=== PATIENT | female | born 1950 | race Asian ===

== ENCOUNTER 2022-06-17 11:37 | Emergency (ER) | payer OTHER ==
[~2022-06-17] VITALS: Ht 152.4 cm; Wt 80.3 kg
[2022-06-17 11:41] VITALS: BP 150/90
--- NOTE | 2022-06-17 11:41 | NUR ---
MAKENZIE ALS TO ER BED 4
--- NOTE | 2022-06-17 11:45 | NUR ---
72/F [facility] [place] for ALOC and HTN x 20 minutes BP 217/89. Patient ambulatory, A&Ox4; dialysis M/W/F completed ~2 hrs of dialysis treatment. Per EMS, patient was altered on scene with GCS 12 E3 V3 M6. Upon assessment, patient A&Ox3 to name/, time, place. Patient denies medical complaint at this time; denies SOB, chest pain, headache, dizziness, fatigue, blurry vision, extremity weakness. Tunneled cath right upper chest. 20G to L AC by EMS. SpO2 99% on room air. 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 Bed locked in lowest position, side rails x 2 for pt safety. PMH: ESRD stage 5 Meds: carvedilol, amlodipine, glipzide, benazepril NKDA
--- NOTE | 2022-06-17 12:10 | NUR ---
Patient to CT by mihai
--- NOTE | 2022-06-17 12:27 | NUR ---
Dr. Villa evaluating patient at bedside
--- NOTE | 2022-06-17 12:28 | NUR ---
Patient returned from CT via gurney and placed back onto teletypesetter monitor.
[2022-06-17] MEDS ORDERED: amLODIPine 5 MG TAB PO ONE (12:40)
--- NOTE | 2022-06-17 12:45 | NUR ---
Lab at bedside
--- NOTE | 2022-06-17 12:59 | NUR ---
Patient unable to void
--- NOTE | 2022-06-17 13:00 | NUR ---
Dr. Villa made aware of patient unable to void.
[2022-06-17 13:29] LABS: BASOPHILS # (AUTO) 0.1 K/uL (0.00-0.22); BASOPHILS % (AUTO) 0.9 % (0.0-2.0); EOSINOPHILS # (AUTO) 0.2 K/uL (0-0.4); EOSINOPHILS % (AUTO) 4.2 % (0.0-4.0); HEMATOCRIT 32.6 % (36-48); HEMOGLOBIN 10.3 g/dL (12.0-16.0); LYMPHOCYTES # (AUTO) 1.1 K/uL (2.5-16.5); LYMPHOCYTES % (AUTO) 18.6 % (20.5-51.1); MEAN CORPUSCULAR HEMOGLOBIN 26 pg (27-31); MEAN CORPUSCULAR HGB CONC 32 g/dL (33-37); MEAN CORPUSCULAR VOLUME 80.4 fL (80-94); MONOCYTES # (AUTO) 0.4 K/uL (0.8-1.0); MONOCYTES % (AUTO) 7.6 % (1.7-9.3); NEUTROPHILS # (AUTO) 4.1 K/uL (1.8-7.7); NEUTROPHILS % (AUTO) 68.7 % (42.2-75.2); PLATELET COUNT (AUTO) 135 K/uL (140-450); RED BLOOD CELL COUNT(AUTO) 4.06 MIL/uL (4.20-5.40); RED CELL DISTRIBUTION WIDTH 17.3 % (11.6-13.7); WHITE BLOOD COUNT (AUTO) 5.9 K/uL (4.8-10.8)
[2022-06-17 13:55] LABS: ALBUMIN 3.5 g/dL (3.4-5.0); ANION GAP 11.8 (8-16); CARBON DIOXIDE 30.9 mmol/L (21-32); CREATININE 2.9 mg/dL (0.6-1.3); POTASSIUM 3.7 mmol/L (3.5-5.1); TOTAL BILIRUBIN 0.7 mg/dL (0.0-1.0)
[2022-06-17 14:28] LABS: THYROID STIMULATING HORMONE 0.18 uIU/mL (0.34-3.74)
--- NOTE | 2022-06-17 14:30 | NUR ---
Patient resting with both eyes closed in semi-fowlers position. 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 Bed locked in lowest position, side rails x 1. Respirations even/unlabored.
--- NOTE | 2022-06-17 14:32 | NUR ---
BP 203/83; Dr. Unger notified.
[2022-06-17] MEDS ORDERED: BENAZEPRIL 20 MG TAB PO SCH (14:35)
[2022-06-17] MEDS ORDERED: carvediloL 6.25 MG TAB PO ONE (14:35)
[2022-06-17] MEDS ORDERED: CRUSHER, PILL MC ONE (14:43)
--- NOTE | 2022-06-17 15:12 | NUR ---
Patient resting with both eyes closed in semi-fowlers position. quality assurance monitor body remains in place. Respirations even/unlabored; SpO2 99% on room air. Bed locked in lowest position, side rails x 1.
--- NOTE | 2022-06-17 16:15 | NUR ---
BP 186/83; Dr. Unger notified.
[2022-06-17 16:17] VITALS: BP 186/83
--- NOTE | 2022-06-17 16:18 | NUR ---
EMT bedside for EKG
--- NOTE | 2022-06-17 16:24 | NUR ---
Patient A&Ox4 at this time speaking with family on phone.
--- NOTE | 2022-06-17 16:27 | NUR ---
[facility] notified for patient's pending discharge. States ETA 10 minutes.
--- NOTE | 2022-06-17 16:53 | NUR ---
Patient discharged with v/s stable. Written and verbal after care instructions given and explained. Patient verbalized understanding. Ambulatory with steady gait. All questions addressed prior to discharge. Advised to follow up with PMD. Addendum: 06/17/22 at 1655 by MED Patient discharged with v/s stable. Written and verbal after care instructions given and explained for Hemodialysis, Care After. Patient verbalized understanding. Ambulatory with steady gait. All questions addressed prior to discharge. Advised to follow up with PMD.
== END 2022-06-17 16:53 | disposition home or self-care (01) ==
LOC: MED 11:37
DX: E87.8 Other disorders of electrolyte and fluid balance, not elsewhere classified (principal); Z20.822 Contact with and (suspected) exposure to COVID-19; N18.5 Chronic kidney disease, stage 5; I10 Essential (primary) hypertension; Z99.2 Dependence on renal dialysis
CPT/HCPCS: 36415; 70450; 71045; 80053; 83605; 83880; 84443; 84484; 85025; 87040; 87426; 93005; 99285; G0482; Q0092

== ENCOUNTER 2024-02-02 12:16 | Inpatient (IN) | payer OTHER, MEDICAID ==
[~2024-02-02] VITALS: Ht 177.8 cm; Wt 49.9 kg
[2024-02-02 12:23] VITALS: BP 179/99; PULSE 77; RESP 20; TEMP 98.4; O2SAT 95
[2024-02-02 14:00] VITALS: O2SAT 95
[2024-02-02 14:17] LABS: FLU A ANTIGEN negative (NEGATIVE); FLU B ANTIGEN negative (NEGATIVE)
[2024-02-02 14:24] LABS: MEAN CORPUSCULAR VOLUME 90.1 fL (80-94); RED BLOOD CELL COUNT(AUTO) 3.66 MIL/uL (4.20-5.40)
[2024-02-02 14:26] LABS: BASOPHILS # (AUTO) 0.1 K/uL (0.00-0.22); BASOPHILS % (AUTO) 1.1 % (0.0-2.0); EOSINOPHILS % (AUTO) 9.8 % (0.0-4.0); LYMPHOCYTES # (AUTO) 1.9 K/uL (2.5-16.5); LYMPHOCYTES % (AUTO) 17.9 % (20.5-51.1); MEAN CORPUSCULAR HEMOGLOBIN 30 pg (27-31); MEAN CORPUSCULAR HGB CONC 33 g/dL (33-37); MONOCYTES # (AUTO) 0.7 K/uL (0.8-1.0); NEUTROPHILS # (AUTO) 6.8 K/uL (1.8-7.7); NEUTROPHILS % (AUTO) 64.2 % (42.2-75.2); PLATELET COUNT (AUTO) 218 K/uL (140-450); RED CELL DISTRIBUTION WIDTH 14.3 % (11.6-13.7); WHITE BLOOD COUNT (AUTO) 10.6 K/uL (4.8-10.8)
[2024-02-02 14:44] LABS: ALANINE AMINOTRANSFERASE 11 U/L (12-78); ALBUMIN 3.6 g/dL (3.4-5.0); ALKALINE PHOSPHATASE 132 U/L (50-136); ASPARTATE AMINOTRANSFERASE 16 U/L (15-37); BILIRUBIN,DIRECT 0.1 mg/dL (0.0-0.3); TOTAL BILIRUBIN 0.6 mg/dL (0.0-1.0)
[2024-02-02 14:47] LABS: LACTIC ACID 1.8 mmol/L (0.4-2.0)
[2024-02-02 14:52] LABS: ANION GAP 12.2 (8-16); CALCIUM 10.1 mg/dL (8.5-10.1); CARBON DIOXIDE 33.4 mmol/L (21-32); CHLORIDE 97 mmol/L (98-107); CREATININE 3.1 mg/dL (0.6-1.3); GLUCOSE 133 mg/dL (74-106); POTASSIUM 3.6 mmol/L (3.5-5.1); SODIUM SERUM 139 mmol/L (136-145); UREA NITROGEN, BLOOD 11 mg/dL (7-18)
[2024-02-02 14:54] LABS: INR 0.89 (0.8-1.2); PARTIAL THROMBOPLASTIN TIME 21.9 secs (22-35.6); PROTHROMBIN TIME 9.4 secs (10.8-13.4)
[2024-02-02 16:20] LABS: APPEARANCE,URINE CLEAR (CLEAR); BILIRUBIN,URINE NEGATIVE (NEGATIVE); BLOOD, URINE 1+ (NEGATIVE); COLOR,URINE YELLOW (YELLOW); LEUKOCYTE ESTERASE ,URINE 1+ (NEGATIVE); NITRITE, URINE NEGATIVE (NEGATIVE); PROTEIN,URINE 1+ (NEGATIVE); UGLUCOSE TRACE (NEGATIVE); UROBILINOGEN,URINE 0.2 EU/dL (0.2 - 1)
[2024-02-02 16:31] LABS: BACTERIA,URINE 10-30 (MOD) /HPF (None Seen); SQUAMOUS EPITHELIAL CELL,UR 4-10 (MOD) /LPF (0-3 (FEW))
[2024-02-02] MEDS ORDERED: NIFE30TA17 PO (17:13)
[2024-02-02] MEDS ORDERED: DICL100G32 TP (17:13)
[2024-02-02] MEDS ORDERED: [UNRECOGNIZED DRUG - CODE] PO (17:13)
[2024-02-02] MEDS ORDERED: CARV3.122 PO (17:13)
[2024-02-02] MEDS ORDERED: PATI8.4P PO (17:13)
[2024-02-02] MEDS ORDERED: SEVE800T6 (17:13)
[2024-02-02] MEDS ORDERED: AMOX500C25 PO (17:13)
[2024-02-02] MEDS ORDERED: ERGO-30 PO (17:13)
[2024-02-02] MEDS ORDERED: BENA20TA88 PO (17:13)
[2024-02-02] MEDS ORDERED: ONDANSETRON 4 MG/2 ML VIAL IVP PRN (17:25)
[2024-02-02] MEDS ORDERED: MORPHINE SULFATE 2 MG/ML SYR IVP PRN (17:25)
[2024-02-02] MEDS ORDERED: ACETAMINOPHEN 325 MG TAB PO PRN (17:25)
[2024-02-02] MEDS ORDERED: cefTRIAXone 1,000 MG VIAL ONE (18:12)
[2024-02-02 18:54] VITALS: BP 173/48; PULSE 59; RESP 18; TEMP 96.4; O2SAT 99
[2024-02-02 19:07] LABS: BLOOD GAS PCO2 41.6 mmHg (32.0-45.0); BLOOD GAS PH 7.476 (7.350-7.450); BLOOD GAS PO2 69.8 mmHg (83.0-108.0)
[2024-02-02 19:08] LABS: BLOOD GAS BASE EXCESS 5.9 mmol/L (-2.0-3.0); BLOOD GAS O2 SAT% 94.2 % (94.0-98.0)
[2024-02-02 20:00] VITALS: PULSE 57; PULSE 62; RESP 20; O2SAT 97
[2024-02-02 20:22] VITALS: PULSE 51; RESP 20; O2SAT 97
[2024-02-02 23:08] VITALS: O2SAT 97
[2024-02-03] VITALS (7 sets, daily range): BP systolic 112–187; BP diastolic 54–73; PULSE 55–83; RESP 18; TEMP 97.2–98.2; O2SAT 97–100
[2024-02-03 06:47] LABS: BASOPHILS # (AUTO) 0.1 K/uL (0.00-0.22); BASOPHILS % (AUTO) 1.2 % (0.0-2.0); EOSINOPHILS # (AUTO) 0.6 K/uL (0-0.4); EOSINOPHILS % (AUTO) 7.5 % (0.0-4.0); HEMOGLOBIN 10.7 g/dL (12.0-16.0); LYMPHOCYTES # (AUTO) 1.9 K/uL (2.5-16.5); LYMPHOCYTES % (AUTO) 24.3 % (20.5-51.1); MEAN CORPUSCULAR HEMOGLOBIN 29 pg (27-31); MEAN CORPUSCULAR HGB CONC 33 g/dL (33-37); MEAN CORPUSCULAR VOLUME 90.4 fL (80-94); MONOCYTES # (AUTO) 0.9 K/uL (0.8-1.0); MONOCYTES % (AUTO) 10.9 % (1.7-9.3); NEUTROPHILS # (AUTO) 4.4 K/uL (1.8-7.7); NEUTROPHILS % (AUTO) 56.1 % (42.2-75.2); PLATELET COUNT (AUTO) 202 K/uL (140-450); RED BLOOD CELL COUNT(AUTO) 3.64 MIL/uL (4.20-5.40); RED CELL DISTRIBUTION WIDTH 14.4 % (11.6-13.7); WHITE BLOOD COUNT (AUTO) 7.9 K/uL (4.8-10.8)
[2024-02-03 07:22] LABS: ANION GAP 9.9 (8-16); CARBON DIOXIDE 34.1 mmol/L (21-32); CHLORIDE 99 mmol/L (98-107); GLUCOSE 132 mg/dL (74-106); SODIUM SERUM 139 mmol/L (136-145); UREA NITROGEN, BLOOD 18 mg/dL (7-18)
[2024-02-03 07:25] LABS: CREATININE 4.8 mg/dL (0.6-1.3)
[2024-02-03] MEDS: hydrALAZINE 20 MG/ML VIAL IVP PRN (10:50)
[2024-02-03] MEDS ORDERED: NIFE30TA17 PO (12:16)
[2024-02-03] MEDS ORDERED: carvediloL 12.5 MG TAB PO SCH (21:00)
[2024-02-04] MEDS ORDERED: BENAZEPRIL 20 MG TAB PO SCH (09:00)
[2024-02-04] MEDS ORDERED: ERGOCALCIFEROL 50,000 IU SGL PO SCH (09:00)
== END 2024-02-03 15:05 | disposition home or self-care (01) | DRG 304 ==
LOC: MED 12:16 → MTU 17:28
PROVIDERS: ADMIT Hospitalist; ATTEND Hospitalist
DX: I16.1 Hypertensive emergency (principal); N18.6 End stage renal disease; I67.4 Hypertensive encephalopathy; I12.0 Hypertensive chronic kidney disease with stage 5 chronic kidney disease or end stage renal disease; Z20.822 Contact with and (suspected) exposure to COVID-19; R41.0 Disorientation, unspecified; Z99.2 Dependence on renal dialysis; Z79.899 Other long term (current) drug therapy
CPT/HCPCS: 36415; 36600; 70450; 71045; 80048; 80076; 81001; 82140; 82803; 83605; 83735; 84484; 85025; 85610; 85730; 87040; 87081; 87086; 93005; 96365; 99285; J0360; J0696; J7060